=== PATIENT | male | born 1990 | race Two or more races ===

== ENCOUNTER → 2020-07-01 | Outpatient (CLI) | payer OTHER ==
[~2020-07-01] MED LIST: IOHEXOL 300 MG/ML 100ML BOTTLE IJ ONE
[2020-07-01 11:03] LABS: Albumin 4.7 g/dL (3.4-5.0); Calcium 9.6 mg/dL (8.5-10.1); Potassium 4.3 mmol/L (3.5-5.1)
[2020-07-01 11:06] LABS: BUN/Creatinine Ratio 11.1; Bilirubin, Total 0.8 mg/dL (0.2-1.0); Total Protein 8.5 g/dL (6.4-8.2)
== END | disposition home or self-care (01) ==
LOC: CT 09:33
DX: C64.9 Malignant neoplasm of unspecified kidney, except renal pelvis (principal); N20.0 Calculus of kidney; N28.9 Disorder of kidney and ureter, unspecified
CPT/HCPCS: 36415; 74177; 80053; Q9967

== ENCOUNTER → 2020-10-21 | Outpatient (CLI) | payer OTHER | END | disposition home or self-care (01) | LOC: XYW 08:50 | DX: M47.812 Spondylosis without myelopathy or radiculopathy, cervical region (principal); M25.78 Osteophyte, vertebrae; M50.21 Other cervical disc displacement, high cervical region; M48.02 Spinal stenosis, cervical region; M51.24 Other intervertebral disc displacement, thoracic region; M47.814 Spondylosis without myelopathy or radiculopathy, thoracic region; M51.44 Schmorl's nodes, thoracic region; M47.817 Spondylosis without myelopathy or radiculopathy, lumbosacral region; M48.07 Spinal stenosis, lumbosacral region; M51.27 Other intervertebral disc displacement, lumbosacral region | CPT/HCPCS: 72141; 72146; 72148 ==

== ENCOUNTER → 2022-04-07 | Outpatient (CLI) | payer OTHER | END | disposition home or self-care (01) | LOC: CT 08:44 → EEVIPCON 09:00 | DX: M25.561 Pain in right knee (principal); M89.9 Disorder of bone, unspecified | CPT/HCPCS: 73700 ==

== ENCOUNTER → 2024-03-07 | Outpatient (CLI) | payer OTHER | END | disposition home or self-care (01) | LOC: XYW 11:14 | DX: M25.461 Effusion, right knee (principal); M25.861 Other specified joint disorders, right knee | CPT/HCPCS: 73700 ==

== ENCOUNTER → 2024-05-28 | Outpatient (CLI) | payer OTHER ==
[2024-05-28 10:17] LABS: Anion Gap 4 (5-15); Carbon Dioxide 29 mmol/L (20-31); Chloride 107 mmol/L (98-107); Sodium 140 mmol/L (136-145)
[2024-05-28 10:22] LABS: Glucose 95 mg/dL (74-106)
[2024-05-28 10:23] LABS: Blood Urea Nitrogen 10 mg/dL (9-23)
--- NOTE | 2024-05-28 11:30 | DVH ---
CT ABDOMEN AND PELVIS WITH CONTRAST CLINICAL HISTORY: H/O RENAL CANCER TECHNIQUE: Multidetector CT of the abdomen was performed from lung bases to pubic symphysis. Imaging was performed with IV contrast. Axial, coronal and sagittal multiplanar reformats were obtained from the axial data set by the technologist. 100 cc of Omnipaque 300 contrast was injected intraven ously. Multiphase postcontrast CT images were obtained. Radiation optimization: All CT scans at this facility use at least one of these dose optimization diana hniques: automated exposure control mA and/or kV adjustment per patient size (includes targeted exam s where dose is matched to clinical indication) or iterative reconstruction. Radiation Dose Information: CT Dose: CTDI volume is 24.12 mGy. Dose-length product is 3481.71 mGy*cm Comparison: CT AB PEL WITH IV CON ONLY on DOS: 07/01/20 FINDINGS: There are postsurgical changes related to partial nephrectomy in the lower pole of the right kidney. There is no evidence of tumor recurrence. There are small bilateral renal cysts. There are small diana ateral renal calculi, largest in the right upper pole measuring 3 mm. There is no hydronephrosis. The renal veins are patent. There is no evidence of retroperitoneal lymphadenopathy. There is diffuse fatty infiltration of the liver. The gallbladder, pancreas, adrenal glands, and s pleen appear within normal limits. There is no free fluid or free air. The small and large bowel loops demonstrate normal caliber and appear within normal limits.. The abdominal aorta and IVC appear within normal limits. The pelvic organ appears within normal limits. The bladder is incompletely filled and demonstrates c ircumferential wall thickening. There is no evidence of a pelvic mass or lymphadenopathy. There is no free fluid collection. Lung bases are clear. There is no acute osseous abnormality. IMPRESSION: 1. Postsurgical changes related to partial right nephrectomy. There is no evidence of tumor recurrenc e or metastatic disease in the abdomen and pelvis. 2. Hepatic steatosis.. 3. Incompletely filled bladder appears to demonstrate circumferential wall thickening which May relat e to chronic cystitis versus outlet obstruction. Clinical correlation is recommended. HS:Y
== END | disposition home or self-care (01) ==
LOC: EEVIPCON 09:03 → CT 09:03
DX: N28.1 Cyst of kidney, acquired (principal); K76.0 Fatty (change of) liver, not elsewhere classified; Z85.528 Personal history of other malignant neoplasm of kidney; Z90.5 Acquired absence of kidney; N20.0 Calculus of kidney
CPT/HCPCS: 36415; 74178; 80048; Q9967